=== PATIENT | male | born 1980 | race Hispanic/Latino ===

== ENCOUNTER 2016-11-28 21:03 | Observation (INO) | payer SELFPAY ==
--- NOTE | 2016-11-28 21:33 | ED PDOC ---
HPI: Psych/Substance Abuse Time Seen by Provider: 11/28/16 21:15 Chief Complaint (Nursing): Substance Abuse Chief Complaint (Provider): etoh History Per: Patient History/Exam Limitations: intoxication Additional History Per: Patient, EMS Additional Complaint(s): 36 y/o male brought in by EMS and police for eval of possible alcohol intoxication. Patient admits to drinking approximately 8 beers tonight; denies acute medical or psychiatric complaints. Past Medical History Reviewed: Historical Data, Nursing Documentation, Vital Signs Vital Signs: Last Vital Signs Temp 98.8 F 11/28/16 21:05 Pulse 121 H 11/28/16 21:05 Resp 20 11/28/16 21:05 BP 180/114 H 11/28/16 21:05 Pulse Ox 99 11/28/16 21:05 - Medical History PMH: No Chronic Diseases - Surgical History Surgical History: No Surg Hx - Family History Family History: States: No Known Family Hx - Living Arrangements Living Arrangements: Alone (homeless) - Social History Current smoker - smoking cessation education provided: Yes Alcohol: > 2 Drinks/Day Drugs: Denies - Allergies Allergies/Adverse Reactions: Allergies Allergy/AdvReac Type Severity Reaction Status Date / Time Penicillins Allergy RASH Verified 03/26/16 23:39 Review of Systems ROS Statement: Except As Marked, All Systems Reviewed And Found Negative Physical Exam - Reviewed Nursing Documentation Reviewed: Yes Vital Signs Reviewed: Yes - Physical Exam Appears: Positive for: Well, Non-toxic, No Acute Distress Head Exam: Positive for: ATRAUMATIC, NORMAL INSPECTION, NORMOCEPHALIC Skin: Positive for: Normal Color Eye Exam: Positive for: Normal appearance ENT: Positive for: Normal ENT Inspection Cardiovascular/Chest: Positive for: Regular Rate, Rhythm Respiratory: Positive for: Normal Breath Sounds Gastrointestinal/Abdominal: Positive for: Normal Exam Back: Positive for: Normal Inspection Extremity: Positive for: Normal ROM Neurologic/Psych: Positive for: Alert, Oriented, Other (+AOB) - ECG O2 Sat by Pulse Oximetry: 99 ED OBSERVATION Discharge: Yes Date of observation admission: 11/28/16 Time of observation admission: 23:22 - Observation admission statement Patient is being placed in observation because:: acute alcohol intoxication - Goals of Observation Goals of observation are:: observe for clinical sobriety - Progress Note Progress Note: 11/28/16 23:29 Patient sleeping; no distress 11/29/16 1:00 Patient awake, no distress 2:30 Patient awake, no distress 3:00 Patient awake, tolerated food tray 11/29/16 04:30 Patient awake, alert, oriented x3. Ambulating steady gait. Stable for discharge Disposition - Clinical Impression Clinical Impression: Alcohol intoxication - Patient ED Disposition Is Patient to be Admitted: No Counseled Patient/Family Regarding: Studies Performed, Diagnosis, Need For Followup - Disposition Disposition: Routine/Home Disposition Time: 04:24 Condition: IMPROVED
[2016-11-29 03:59] VITALS: BP 118/70; PULSE 103; RESP 16; TEMP 97.9
[2016-11-29 04:25] VITALS: O2SAT 99
== END 2016-11-29 04:28 | disposition home or self-care (01) ==
LOC: H.ER 21:03 → H.EROBSV 23:22
PROVIDERS: ADMIT Emergency Medicine; ATTEND Emergency Medicine
DX: F10.129 Alcohol abuse with intoxication, unspecified (principal); Y90.8 Blood alcohol level of 240 mg/100 ml or more; Z88.0 Allergy status to penicillin; Z59.0 Homelessness; F17.200 Nicotine dependence, unspecified, uncomplicated
CPT/HCPCS: 99283; G0378; G0480